=== PATIENT | female | born 1965 | race Caucasian/White ===

== ENCOUNTER 2017-11-17 14:44 | Emergency (ER) | payer MEDICARE, OTHER ==
[~2017-11-17] VITALS: Ht 170.2 cm; Wt 131.0 kg
[~2017-11-17 14:44] MED LIST: ARIP30; ATEN1TAB74; BUSP5TAB3; CLON1; LEVO.05; WELL150T
[2017-11-17 14:45] VITALS: BP 135/75; PULSE 107; RESP 18; TEMP 99.4; O2SAT 100
[2017-11-17] MEDS ORDERED: SODIUM CHLOR 0.9% 1000 ML INJ 1,000 ML IV SCH (15:03)
--- NOTE | 2017-11-17 15:10 | PD ---
HPI Chief Complaint: GI Complaint Time Seen by Provider: 14:58 Travel History International Travel<30 days: No Contact w/Intl Traveler<30days: No Traveled to known affect area: No History of Present Illness HPI The patient was seen and examined in the presence of the nurse. She complains of abdominal pain with nausea and vomiting diarrhea. Pain started in the left side and radiates toward the right side. It is rather diffuse in nature. She is vomited and had multiple episodes of diarrhea. Denies fever. She has no uterus or ovaries. She has history of diverticulitis multiple times. She is not sure if this feels the same or not. No alleviating factors. No exacerbating factors. Duration 1 day. PFSH Past Medical History Arthritis: Yes Asthma: No Autoimmune Disease: No Blood Disorders: No Anxiety: Yes Depression: Yes Heart Rhythm Problems: No Cancer: No Cardiovascular Problems: Yes (TACHYCARDIA) High Cholesterol: No Chemotherapy: No Chest Pain: No Congestive Heart Failure: No COPD: No Cerebrovascular Accident: No Diabetes: No Diminished Hearing: No Endocrine: No GERD: No Glaucoma: No Genitourinary: No Headaches: No Hepatitis: No Hiatal Hernia: No Hypertension: Yes Immune Disorder: No Kidney Stones: No Musculoskeletal: Yes Neurologic: No Psychiatric: Yes Reproductive: No Respiratory: Yes (BRONCHITIS) Migraines: No Myocardial Infarction: No Radiation Therapy: No Renal Failure: No Schizophrenia: Yes Seizures: No Sickle Cell Disease: No Sleep Apnea: No Thyroid Disease: Yes Ulcer: No ?: Not Ovarian Cysts: Yes (08/21) Past Surgical History Abdominal Surgery: Yes (per patient she states they did not take her ovaries out only removed cyst) AICD: No Appendectomy: No Arteriovenous Shunt: No Cardiac Surgery: No Cholecystectomy: No Ear Surgery: No Endocrine Surgery: No Eye Surgery: No Genitourinary Surgery: No Gynecologic Surgery: No Insulin Pump: No Joint Replacement: No Oral Surgery: No Pacemaker: No Thoracic Surgery: No Other Surgery: Yes Social History Alcohol Use: No (DENIES) Tobacco Use: No Substance Use: No Allergies-Medications (Allergen,Severity, Reaction): Coded Allergies: codeine (Unverified Allergy, Severe, RASH, MAKES HEART FEEL FUNNY, 02/26/17 ) diclofenac (Unverified Allergy, Severe, Nausea/Vomiting, 02/26/17) etodolac (Unverified Allergy, Severe, Nausea/Vomiting, 02/26/17) flurbiprofen (Unverified Allergy, Severe, Nausea/Vomiting, 02/26/17) ibuprofen (Unverified Allergy, Severe, Nausea/Vomiting, 02/26/17) indomethacin (Unverified Allergy, Severe, Nausea/Vomiting, 02/26/17) ketoprofen (Unverified Allergy, Severe, Nausea/Vomiting, 02/26/17) ketorolac (Unverified Allergy, Severe, Nausea/Vomiting, 02/26/17) naproxen (Unverified Allergy, Severe, Nausea/Vomiting, 02/26/17) oxaprozin (Unverified Allergy, Severe, Nausea/Vomiting, 02/26/17) olanzapine (Unverified Allergy, Mild, BLISTERS AROUND MOUTH, 02/26/17) Reported Meds & Prescriptions Reported Meds & Active Scripts Active Reported Baclofen 10 Mg Tab 10 Mg PO Q8HR Oxycodone (Oxycodone HCl) 15 Mg Tab 15 Mg PO Q6H PRN Morphabond ER 12 HR (Morphine Sulfate) 60 Mg Tab 60 Mg PO Q12H Protonix (Pantoprazole Sodium) 40 Mg Tab 40 Mg PO DAILY Fioricet (Khxascajbw-Cohccupnszgis-Duuexmep) 50-300-40 Mg Cap 1-2 Cap PO Q6H PRN Zofran (Ondansetron HCl) 4 Mg Tab 4 Mg PO Q6HR PRN Bentyl (Dicyclomine HCl) 10 Mg Cap 10 Mg PO TID PRN Neurontin (Gabapentin) 300 Mg Cap 300 Mg PO TID Lexapro (Escitalopram Oxalate) 10 Mg Tab 10 Mg PO DAILY Lisinopril 10 Mg Tab 10 Mg PO DAILY Review of Systems General / Constitutional: No: Fever Eyes: No: Visual changes HENT: No: Headaches Cardiovascular: No: Chest Pain or Discomfort Respiratory: No: Shortness of Breath Gastrointestinal: Positive: Nausea, Vomiting, Diarrhea, Abdominal Pain Genitourinary: No: Dysuria Musculoskeletal: No: Pain Skin: No Rash Neurologic: No: Weakness Psychiatric: No: Depression Endocrine: No: Polydipsia Hematologic/Lymphatic: No: Easy Bruising Physical Exam Narrative GENERAL: Well-nourished, well-developed patient with nausea and abdominal pain SKIN: Focused skin assessment reveals no rash and nodules. Skin is Warm and dry. HEAD: Atraumatic. Normocephalic. EYES: Pupils equal and round. No scleral icterus. No injection or drainage. ENT: No nasal bleeding or discharge. Mucous membranes pink and moist. NECK: Trachea midline. No JVD. CARDIOVASCULAR: Regular rate and rhythm. No murmur appreciated. RESPIRATORY: No accessory muscle use. Clear to auscultation. Breath sounds equal bilaterally. GASTROINTESTINAL: Abdomen soft, diffuse abdominal tenderness, worse in the right lower quadrant, no rebound or guarding. Hepatic and splenic margins not palpable. MUSCULOSKELETAL: No obvious deformities. No clubbing. No cyanosis. No edema. NEUROLOGICAL: Awake and alert. No obvious cranial nerve deficits. Motor grossly within normal limits. Normal speech. PSYCHIATRIC: Appropriate mood and affect; insight and judgment normal. Data Data Last Documented VS Vital Signs Date Time Temp Pulse Resp B/P (MAP) Pulse Ox O2 Delivery O2 Flow Rate FiO2 11/17/17 16:37 98 18 118/68 (85) 95 Room Air 11/17/17 14:45 99.4 Orders Orders Complete Blood Count With Diff (11/17/17 15:03) Comprehensive Metabolic Panel (11/17/17 15:03) Lipase (11/17/17 15:03) Prothrombin Time / Inr (Pt) (11/17/17 15:03) Act Partial Throm Time (Ptt) (11/17/17 15:03) Urinalysis - C+S If Indicated (11/17/17 15:03) Ct Abd/Pel W Iv Contrast(Rout) (11/17/17 15:03) Iv Access Insert/Monitor (11/17/17 15:03) NPO (11/17/17 15:03) Morphine Inj (Morphine Inj) (11/17/17 15:15) Ondansetron Inj (Zofran Inj) (11/17/17 15:15) Sodium Chlor 0.9% 1000 Ml Inj (Ns 1000 M (11/17/17 15:03) Sodium Chloride 0.9% Flush (Ns Flush) (11/17/17 15:15) Iohexol 350 Inj (Omnipaque 350 Inj) (11/17/17 16:03) Labs Laboratory Tests Test 11/17/17 15:22 White Blood Count 10.3 TH/MM3 Red Blood Count 4.40 MIL/MM3 Hemoglobin 13.2 GM/DL Hematocrit 38.8 % Mean Corpuscular Volume 88.2 FL Mean Corpuscular Hemoglobin 29.9 PG Mean Corpuscular Hemoglobin Concent 33.9 % Red Cell Distribution Width 13.5 % Platelet Count 223 TH/MM3 Mean Platelet Volume 8.8 FL CBC Comment AUTO DIFF Differential Total Cells Counted 100 Neutrophils % (Manual) 89 % Band Neutrophils % 5 % Lymphocytes % 3 % Monocytes % 3 % Neutrophils # (Manual) 9.7 TH/MM3 Differential Comment FINAL DIFF MANUAL Platelet Estimate NORMAL Platelet Morphology Comment NORMAL Prothrombin Time 10.2 SEC Prothromb Time International Ratio 1.0 RATIO Activated Partial Thromboplast Time 22.6 SEC Blood Urea Nitrogen 14 MG/DL Creatinine 0.65 MG/DL Random Glucose 104 MG/DL Total Protein 7.4 GM/DL Albumin 3.4 GM/DL Calcium Level 8.8 MG/DL Alkaline Phosphatase 139 U/L Aspartate Amino Transf (AST/SGOT) 17 U/L Alanine Aminotransferase (ALT/SGPT) 20 U/L Total Bilirubin 0.2 MG/DL Sodium Level 141 MEQ/L Potassium Level 3.9 MEQ/L Chloride Level 107 MEQ/L Carbon Dioxide Level 29.8 MEQ/L Anion Gap 4 MEQ/L Estimat Glomerular Filtration Rate 95 ML/MIN Lipase 94 U/L [facility] Medical Decision Making Medical Screen Exam Complete: Yes Emergency Medical Condition: Yes Medical Record Reviewed: Yes Differential Diagnosis Appendicitis, colitis, diverticulitis Narrative Course I have reviewed the patient's electronic medical record.Patient has history of intentional overdose in 2006 IV placed and IV Zofran and morphine and normal saline given Labs and CT ordered Lab studies are normal CT shows some circumferential thickening of the stomach , Etiology unclear. The rest of the abdomen pelvis shows no emergent findings. I discussed this with the patient at length. Recommend outpatient follow-up. Continue Protonix. I refilled her Zofran She does not have diverticulitis or appendicitis or anything requiring hospitalization. Diagnosis Primary Impression: Abdominal pain Qualified Codes: R10.84 - Generalized abdominal pain Additional Impression: Abnormal finding on CT scan Additional Instructions: The patient was advised to follow up with their physician and return if they worsen. Discuss your CT findings of stomach thickening with your physician Med/Other Pt SpecificInfo: Prescription(s) given Scripts Ondansetron Odt (Zofran Odt) 8 Mg Tab 8 MG SL Q8H Y for NAUSEA OR VOMITING, #12 TAB 0 Refills Prov: Costa Allen MD 11/17/17 Disposition: 01 DISCHARGE HOME Condition: Stable Costa Allen MD November 17, 2017 15:10
[2017-11-17] MEDS ORDERED: SODIUM CHLORIDE 0.9% FLUSH 10 ML FLUSH IV FLUSH PRN (15:15)
[2017-11-17] MEDS ORDERED: ONDANSETRON HCL 4 MG/2 ML VIAL IVP ONE (15:15)
[2017-11-17] MEDS ORDERED: MORPHINE SULFATE 4 MG/ML INJ IV PUSH ONE (15:15)
[2017-11-17 15:33] LABS: HEMATOCRIT 38.8 % (35.0-46.0); HEMOGLOBIN 13.2 GM/DL (11.6-15.3); MEAN CELL VOLUME 88.2 FL (80.0-100.0); MEAN CORPUSCULAR HEMOGLOBIN 29.9 PG (27.0-34.0); MEAN CORPUSCULAR HGB CONC 33.9 % (32.0-36.0); MEAN PLATELET VOLUME 8.8 FL (7.0-11.0); PLATELET COUNT 223 TH/MM3 (150-450); RED CELL DISTRIBUTION WIDTH 13.5 % (11.6-17.2); WHITE BLOOD COUNT 10.3 TH/MM3 (4.0-11.0)
[2017-11-17 15:40] VITALS: BP 114/70; PULSE 98; RESP 18; O2SAT 100
[2017-11-17 15:44] LABS: CHLORIDE 107 MEQ/L (98-107); SODIUM (NA) 141 MEQ/L (136-145)
[2017-11-17] MEDS ORDERED: ZOFR4TAB PO (15:46)
[2017-11-17] MEDS ORDERED: OXYC15TA PO (15:46)
[2017-11-17] MEDS ORDERED: NEUR300C PO (15:46)
[2017-11-17] MEDS ORDERED: LISI10TA3 PO (15:46)
[2017-11-17] MEDS ORDERED: PROT40TA PO (15:46)
[2017-11-17] MEDS ORDERED: LEXA10TA PO (15:46)
[2017-11-17] MEDS ORDERED: BUTA1CAP PO (15:46)
[2017-11-17] MEDS ORDERED: DICY10 PO (15:46)
[2017-11-17] MEDS ORDERED: MORP60TA61 PO (15:46)
[2017-11-17] MEDS ORDERED: BACL10TA PO (15:46)
[2017-11-17 15:48] LABS: CALCIUM 8.8 MG/DL (8.5-10.1)
[2017-11-17 15:49] LABS: ALBUMIN 3.4 GM/DL (3.4-5.0); BICARBONATE 29.8 MEQ/L (21.0-32.0); BLOOD UREA NITROGEN 14 MG/DL (7-18); GLUCOSE,RANDOM 104 MG/DL (74-106)
[2017-11-17 15:51] LABS: ALT (GPT) 20 U/L (10-53); AST (GOT) 17 U/L (15-37); CREATININE 0.65 MG/DL (0.50-1.00); GLOMERULAR FILTRATION RATE 95 ML/MIN (>89)
[2017-11-17 15:53] LABS: TOTAL BILIRUBIN ADULT 0.2 MG/DL (0.2-1.0); TOTAL PROTEIN 7.4 GM/DL (6.4-8.2)
[2017-11-17 15:54] LABS: ALKALINE PHOSPHATASE 139 U/L (45-117); PROTHROMBIN TIME - PATIENT 10.2 SEC (9.8-11.6)
[2017-11-17] MEDS ORDERED: IOHEXOL 350 MG/ML 10 ML VIAL (for RAD DIAG) IVCONTRAST ONE (16:03)
--- NOTE | 2017-11-17 16:15 | RADRPT ---
EXAM DATE/TIME: 11/17/2017 15:47 [facility] COMPARISON: No previous studies available for comparison. INDICATIONS : Nausea, vomiting and diarrhea. Diffuse abdominal pain. Evaluate for appendicitis. IV CONTRAST: 85 cc Omnipaque 350 (iohexol) IV ORAL CONTRAST: No oral contrast ingested. RADIATION DOSE: 23.81 CTDIvol (mGy) MEDICAL HISTORY : Hypertension. Diverticulitis. SURGICAL HISTORY : Cyst removed from ovary. ENCOUNTER: Initial ACUITY: 2 days PAIN SCALE: 7/10 LOCATION: Diffuse abdomen. TECHNIQUE: Volumetric scanning of the abdomen and pelvis was performed. Using automated exposure control and ad justment of the mA and/or kV according to patient size, radiation dose was kept as low as reasonably achievable to obtain optimal diagnostic quality images. DICOM format image data is available electro nically for review and comparison. FINDINGS: LOWER LUNGS: The visualized lower lungs are clear. Small hiatal hernia. LIVER: Mild intrahepatic and extra hepatic biliary ductal dilatation with common duct measured 1.2 cm in irene meter at the [facility]. Gallbladder is within normal limits. Liver is homogeneous and otherwise w ithin normal limits. SPLEEN: Normal size without lesion. PANCREAS: Within normal limits. KIDNEYS: 4.2 cm nonenhancing cyst in the lower pole the left kidney. Kidneys otherwise within normal limits. N o evidence of hydronephrosis. ADRENAL GLANDS: Within normal limits. VASCULAR: There is no aortic aneurysm. BOWEL/MESENTERY: Scattered colonic diverticula. No evidence of acute diverticulitis. No bowel dilatation. Appendix wit hin normal limits. No free air or free fluid. Nonspecific distal gastric circumferential wall thicken ing. ABDOMINAL WALL: Within normal limits. RETROPERITONEUM: There is no lymphadenopathy. BLADDER: No wall thickening or mass. REPRODUCTIVE: Within normal limits. INGUINAL: There is no lymphadenopathy or hernia. MUSCULOSKELETAL: Moderate facet arthrosis of the lower lumbar spine. CONCLUSION: 1. Circumferential wall thickening of the distal stomach/antrum. May represent particle disease or ga stritis. 2. Colonic diverticulosis but no evidence of acute diverticulitis. 3. Nonspecific mild intrahepatic and extrahepatic biliary ductal dilatation. Manolo Marcial MD on November 17, 2017 at 16:06 Board Certified Radiologist. This report was verified electronically.
[2017-11-17 16:17] LABS: BANDS 5 % (0-6); LYMPHOCYTES 3 % (9-44); MONOCYTES 3 % (0-8); NEUTROPHIL # MANUAL DIFF 9.7 TH/MM3 (1.8-7.7); POLYS (SEG NEUTROPHILS) 89 % (16-70)
[2017-11-17 16:37] VITALS: BP 118/68; PULSE 98; RESP 18; O2SAT 95
[2017-11-17] MEDS ORDERED: ZOFR8TAB4 SL (16:43)
== END 2017-11-17 17:08 | disposition home or self-care (01) ==
LOC: PHED 14:44
DX: R10.84 Generalized abdominal pain (principal); R93.5 Abnormal findings on diagnostic imaging of other abdominal regions, including retroperitoneum; R11.2 Nausea with vomiting, unspecified; R19.7 Diarrhea, unspecified; K57.90 Diverticulosis of intestine, part unspecified, without perforation or abscess without bleeding; I10 Essential (primary) hypertension; F20.9 Schizophrenia, unspecified; Z88.6 Allergy status to analgesic agent; Z88.5 Allergy status to narcotic agent; Z88.8 Allergy status to other drugs, medicaments and biological substances; Z79.899 Other long term (current) drug therapy
CPT/HCPCS: 74177; 80053; 83690; 85007; 85027; 85610; 85730; 96361; 96374; 96375; 99284; J2270; J2405; J7030; Q9967

== ENCOUNTER 2017-11-17 23:57 | Observation (INO) | payer OTHER, MEDICARE ==
[2017-11-18 00:21] LABS: AUTOMATED NEUTROPHIL # 6.6 TH/MM3 (1.8-7.7); BASOPHIL % 0.3 % (0.0-2.0); EOSINOPHIL % 0.2 % (0.0-4.0); HEMATOCRIT 36.1 % (35.0-46.0); HEMO FLAGS DIFF FINAL; HEMOGLOBIN 12.5 GM/DL (11.6-15.3); LYMPH % 4.2 % (9.0-44.0); LYMPHOCYTE # 0.3 TH/MM3 (1.0-4.8); MEAN CELL VOLUME 88.1 FL (80.0-100.0); MEAN CORPUSCULAR HEMOGLOBIN 30.6 PG (27.0-34.0); MEAN CORPUSCULAR HGB CONC 34.7 % (32.0-36.0); MEAN PLATELET VOLUME 8.4 FL (7.0-11.0); MONO % 4.2 % (0.0-8.0); MONOCYTE # 0.3 TH/MM3 (0-0.9); NEUT % 91.1 % (16.0-70.0); PLATELET COUNT 218 TH/MM3 (150-450); WHITE BLOOD COUNT 7.2 TH/MM3 (4.0-11.0)
[2017-11-18 00:45] LABS: ALBUMIN 3.4 GM/DL (3.4-5.0); ANION GAP 4 MEQ/L (5-15); AST (GOT) 14 U/L (15-37); BICARBONATE 29.7 MEQ/L (21.0-32.0); BLOOD UREA NITROGEN 12 MG/DL (7-18); CALCIUM 8.5 MG/DL (8.5-10.1); CHLORIDE 108 MEQ/L (98-107); CREATININE 0.84 MG/DL (0.50-1.00); GLOMERULAR FILTRATION RATE 71 ML/MIN (>89); GLUCOSE,RANDOM 108 MG/DL (74-106); MAGNESIUM 1.8 MG/DL (1.5-2.5); POTASSIUM 3.4 MEQ/L (3.5-5.1); SODIUM (NA) 142 MEQ/L (136-145)
[2017-11-18 00:46] LABS: ALT (GPT) 19 U/L (10-53)
[2017-11-18 00:49] LABS: ALKALINE PHOSPHATASE 131 U/L (45-117); TOTAL BILIRUBIN ADULT 0.4 MG/DL (0.2-1.0); TOTAL PROTEIN 6.7 GM/DL (6.4-8.2); TROPONIN I LESS THAN 0.02 NG/ML (0.02-0.05)
[2017-11-18 00:53] LABS: CREATINE KINASE 81 U/L (26-192)
[2017-11-18] MEDS: ASPIRIN 81 MG CHEW TAB CHEW (01:22)
[2017-11-18] MEDS: SODIUM CHLOR 0.9% 1000 ML INJ 1,000 ML IV ×2 (01:22→03:14)
[2017-11-18] MEDS: PANTOPRAZOLE SODIUM 40 MG VIAL IV PUSH (01:23)
[2017-11-18] MEDS ORDERED: ACETAMINOPHEN 500 MG CPLT PO (03:15)
[2017-11-18] MEDS ORDERED: SODIUM CHLORIDE 0.9% FLUSH 10 ML FLUSH IV FLUSH (03:15)
[2017-11-18] MEDS ORDERED: ONDANSETRON HCL 4 MG/2 ML VIAL IV PUSH (03:15)
[2017-11-18 04:21] LABS: CREATINE KINASE 60 U/L (26-192); TROPONIN I LESS THAN 0.02 NG/ML (0.02-0.05)
[2017-11-18 07:53] LABS: TROPONIN I LESS THAN 0.02 NG/ML (0.02-0.05)
[2017-11-18 07:55] LABS: CREATINE KINASE 47 U/L (26-192)
[2017-11-18] MEDS: PANTOPRAZOLE SOD 40 MG DELAYED RELEASE TAB PO (08:37)
[2017-11-18] MEDS: SODIUM CHLORIDE 0.9% FLUSH 10 ML FLUSH IV FLUSH (08:38)
[2017-11-18] MEDS: REGADENOSON INJ 0.4 MG/5 ML SYR (10:08)
[2017-11-18] MEDS ORDERED: LISINOPRIL 10 MG TAB PO (10:15)
[2017-11-18] MEDS: ESCITALOPRAM OXALATE 10 MG TAB PO (11:33)
[2017-11-18] MEDS: GABAPENTIN 300 MG CAP PO (11:33)
[2017-11-18] MEDS ORDERED: BACLOFEN 10 MG TAB PO (14:00)
[2017-11-19] MEDS ORDERED: PANTOPRAZOLE SOD 40 MG DELAYED RELEASE TAB PO (09:00)
== END 2017-11-18 15:38 | disposition home or self-care (01) ==
LOC: NEPC 23:57 → NEDA 11-18 02:22 → NEPGCP 11-18 03:50
DX: R07.9 Chest pain, unspecified (principal); I10 Essential (primary) hypertension; R94.31 Abnormal electrocardiogram [ECG] [EKG]; K21.9 Gastro-esophageal reflux disease without esophagitis; F20.9 Schizophrenia, unspecified; I25.2 Old myocardial infarction; K57.92 Diverticulitis of intestine, part unspecified, without perforation or abscess without bleeding
CPT/HCPCS: 71045; 78452; 80053; 82550; 83735; 84484; 85025; 93005; 93017; 96361; 96374; 99285-25